=== PATIENT | female | born 1945 | race Caucasian/White ===

== ENCOUNTER 2017-07-30 09:37 | Outpatient (CLI) | payer MEDICARE, OTHER ==
[~2017-07-30 09:37] MED LIST: Iopamidol 370 76% 100 ML VIAL ONE
--- NOTE | 2017-07-30 14:48 | CT ---
CT ABDOMEN AND PELVIS WITH CONTRAST: Date: 07/30/17 HISTORY: R97.1, elevated CA 125. Breast cancer. Hysterectomy. COMPARISON: None. FINDINGS: Lung bases are clear. The liver is unremarkable. Normal proximal small bowel rotation. Pancreas unrem arkable. Spleen is unremarkable. There is mild cortical atrophy of the left kidney relative to the ri ght. Mild atherosclerotic plaque of both renal arteries. There is a hypodensity in the superior pole of the left kidney measuring 54 Hounsfield units and 6 mm . This is not definitively a cyst. There is also an exophytic hypodensity interpolar right kidney, to o small to characterize, although also not definitively a cyst. The aortoiliac contour is nonaneurysmal. There is some cement in the L3-4 disc space. There is lumbos acral transitional vertebra on the left, Type 3A, with fusion of the enlarged left L5 transverse proc ess of the sacrum. No adenopathy. IMPRESSION: 1. No evidence of metastatic disease in the abdomen or pelvis. 2. No acute inflammatory process in the abdomen or pelvis. 3. Too small to characterize hypodensities of both kidneys, superior pole left kidney and superior p ole right kidney. These are not definitively cysts. A follow-up ultrasound in 6 months recommended ve rsus a dedicated renal protocol MRI. 4. Left Type 3A lumbosacral transitional vertebra. POS: EMERALD
== END 2017-07-30 09:38 | disposition home or self-care (01) ==
LOC: CT 09:37
PROVIDERS: ATTEND Family Medicine
DX: R97.1 Elevated cancer antigen 125 [CA 125] (principal)
CPT/HCPCS: 74177

== ENCOUNTER 2017-12-21 10:37 | Outpatient (CLI) | payer MEDICARE, OTHER | END 2017-12-21 10:38 | disposition home or self-care (01) | LOC: BICRAD 10:37 | PROVIDERS: ATTEND Family Medicine | DX: J30.9 Allergic rhinitis, unspecified (principal) | CPT/HCPCS: 36415; 71046; 80053; 80061; 81001; 84443; 85025 ==

== ENCOUNTER 2017-12-28 14:44 | Outpatient (CLI) | payer MEDICARE, OTHER ==
--- NOTE | 2017-12-28 16:06 | ULT ---
ULTRASOUND BILATERAL RENAL STANDARD 12/28/17 HISTORY: Renal cyst. COMPARISON: CT from July 2017. FINDINGS: Real time bangura scale and color evaluation of the kidneys and urinary bladder was performed. The right kidney measures 9.1 x 4.3 x 4 cm without mass, hydronephrosis or abnormal calcifications. Left kidne y measures 8.6 x 4.1 x 3.4 cm. There is a complicated cyst inferior pole left kidney. Left superior r enal hypodensity not well defined on today's exam. Urinary bladder is unremarkable. IMPRESSION: Inferior pole left renal hypodensity corresponding to one of the complicated cysts from the prior CT examination. No interval growth. Left superior hypodensity not well seen. Renal protocol MRI recommen ded in 6 months. POS: EMERALD
== END 2017-12-28 14:45 | disposition home or self-care (01) ==
LOC: SCSULT 14:44
PROVIDERS: ATTEND Family Medicine
DX: N28.1 Cyst of kidney, acquired (principal); R93.422 Abnormal radiologic findings on diagnostic imaging of left kidney; R19.7 Diarrhea, unspecified; E78.5 Hyperlipidemia, unspecified; I10 Essential (primary) hypertension
CPT/HCPCS: 76770; 87045; 87046; 87177; 87449; 87899

== ENCOUNTER 2018-02-14 07:07 | Outpatient (CLI) | payer MEDICARE, OTHER ==
--- NOTE | 2018-02-14 08:41 | ULT ---
RIGHT UPPER QUADRANT ULTRASOUND: HISTORY: Abdominal pain. FINDINGS: The liver, right kidney, and visualized portions of the pancreas are unremarkable. No shadowing gall stones, gallbladder wall thickening, or pericholecystic fluid is seen. There is small sludge in the gallbladder. The common duct measures 3 mm in diameter. No free fluid is seen in the Morison's pouc h. IMPRESSION: Small amount of gallbladder sludge. No evidence of cholelithiasis. POS: SHIVAM
== END 2018-02-14 07:08 | disposition home or self-care (01) ==
LOC: ULT 07:07
PROVIDERS: ATTEND Internal Medicine Gastroenterology
DX: K52.9 Noninfective gastroenteritis and colitis, unspecified (principal); M54.9 Dorsalgia, unspecified; K82.8 Other specified diseases of gallbladder
CPT/HCPCS: 76705

== ENCOUNTER 2018-07-18 08:55 | Outpatient (CLI) | payer MEDICARE, OTHER ==
--- NOTE | 2018-07-18 15:41 | MRI ---
MRI OF THE ABDOMEN WITHOUT AND WITH CONTRAST: COMPARISON: Renal ultrasound 12/28/2017. HISTORY: Renal cyst seen on prior ultrasound. Followup exam. TECHNIQUE: Multiplanar, multisequence MR images were obtained in an MRI of the abdomen without and with IV contr ast. FINDINGS: There are multiple well-circumscribed nonenhancing lesions in the left kidney which represent cysts. One of these demonstrates high T2 signal that is consistent with a simple cyst. Some of these lesio ns demonstrate either isointense or slightly hyperintense T1 signal and are consistent with hyperdens e/hemorrhagic/proteinaceous cyst. No suspicious enhancement is seen in either kidney. The liver, gallbladder, adrenal glands, spleen, and pancreas are unremarkable. No abdominal adenopat hy is seen. No marrow signal abnormality is present. IMPRESSION: Left renal cysts. POS: EMERALD
== END 2018-07-18 08:56 | disposition home or self-care (01) ==
LOC: SCSMRI 08:55
PROVIDERS: ATTEND Family Medicine
DX: N28.1 Cyst of kidney, acquired (principal)
CPT/HCPCS: 74183; 82565

== ENCOUNTER 2021-04-13 10:04 | Outpatient (CLI) | payer MEDICARE, OTHER | END 2021-04-13 10:05 | disposition home or self-care (01) | LOC: BICMAMMO 10:04 | PROVIDERS: ATTEND Family Medicine | DX: M85.89 Other specified disorders of bone density and structure, multiple sites (principal) | CPT/HCPCS: 77080 ==

== ENCOUNTER 2021-10-04 14:14 | Outpatient (CLI) | payer MEDICARE | END 2021-10-04 14:15 | disposition home or self-care (01) | LOC: BICRAD 14:14 | PROVIDERS: ATTEND Family Medicine | DX: M25.551 Pain in right hip (principal) ==

== ENCOUNTER 2022-08-11 10:12 | Outpatient (CLI) | payer MEDICARE | END 2022-08-11 10:13 | disposition home or self-care (01) | LOC: BICRAD 10:12 | PROVIDERS: ATTEND Family Medicine | DX: R05.3 Chronic cough (principal); R91.1 Solitary pulmonary nodule | CPT/HCPCS: 71046 ==

== ENCOUNTER 2022-08-28 14:27 | Outpatient (CLI) | payer MEDICARE | END 2022-08-28 14:28 | disposition home or self-care (01) | LOC: BICCT 14:27 | PROVIDERS: ATTEND Family Medicine | DX: R91.1 Solitary pulmonary nodule (principal) | CPT/HCPCS: 71270; 82565 ==

== ENCOUNTER 2023-07-02 10:58 | Outpatient (CLI) | payer MEDICARE ==
[~2023-07-02 10:58] MED LIST changes: -Iopamidol 370 76% 100 ML VIAL ONE; +Magnevist 469MG/ML 20 ML VIAL ONE
== END 2023-07-02 10:59 | disposition home or self-care (01) ==
LOC: MRI 10:58
PROVIDERS: ATTEND Family Medicine
DX: H53.8 Other visual disturbances (principal)
CPT/HCPCS: 70553; 82565

== ENCOUNTER 2025-03-06 16:25 | Outpatient (CLI) | payer MEDICARE | END 2025-03-06 16:26 | disposition home or self-care (01) | LOC: BICRAD 16:25 | PROVIDERS: ATTEND Family Medicine | DX: J44.9 Chronic obstructive pulmonary disease, unspecified (principal) | CPT/HCPCS: 71046 ==